=== PATIENT | female | born 1975 | race Caucasian/White ===

== ENCOUNTER 2021-07-07 13:56 | Emergency (ER) | payer SELFPAY ==
[~2021-07-07 13:56] MED LIST: FLEXERIL 10 MG10 MG PO; IBUPROFEN600 MG PO
== END 2021-07-07 14:49 | disposition home or self-care (01) ==
LOC: ER1 13:56
DX: S63.611A Unspecified sprain of left index finger, initial encounter (principal); Z88.0 Allergy status to penicillin; X50.1XXA Overexertion from prolonged static or awkward postures, initial encounter; Y92.69 Other specified industrial and construction area as the place of occurrence of the external cause; Y99.0 Civilian activity done for income or pay
CPT/HCPCS: 73140; 99283